=== PATIENT | female | born 1950 | race Caucasian/White ===

== ENCOUNTER 2017-04-26 12:04 | Inpatient (IN) | payer OTHER, BC ==
[2017-04-26] MEDS ORDERED: TUSSIONEX PENNKINETIC SUSP PO PRN (14:22)
[2017-04-26 15:04] LABS: BASOPHILS % (AUTO) 0.6 % (0.2-1.0); EOSINOPHILS % (AUTO) 0.9 % (0.9-2.9); HEMATOCRIT 39.9 % (36.0-47.0); LYMPHOCYTES # (AUTO) 0.5 X10^3/uL (1.3-2.9); LYMPHOCYTES % (AUTO) 11.9 % (21.0-51.0); MEAN CORPUSCULAR HEMOGLOBIN 33.3 pg (27.0-34.0); MEAN CORPUSCULAR HGB CONC 35.1 g/dL (33.0-35.0); MEAN CORPUSCULAR VOLUME 94.9 fL (80.0-100.0); MEAN PLATELET VOLUME 8.4 fL (7.4-11.0); MONOCYTES # (AUTO) 0.4 x10^3/uL (0.3-0.8); NEUTROPHILS % (AUTO) 75.6 % (42.0-75.0); PLATELET COUNT 57 X10^3/uL (150.0-450.0); RED BLOOD COUNT 4.21 X10^6/uL (3.5-5.4); RED CELL DISTRIBUTION WIDTH 14.2 % (11.6-16.5); WHITE BLOOD COUNT 3.9 X10^3/uL (3.6-10.0)
[2017-04-26 15:09] LABS: BLOOD UREA NITROGEN 18 mg/dL (7-18); CHLORIDE 106 mmol/L (98-107); eGFR BLACK RACES > 60 (>60); eGFR NON BLACK RACES > 60 (>60)
[2017-04-26 15:10] LABS: ALANINE AMINOTRANSFERASE 24 Units/L (12-78); ALBUMIN 3.3 g/dL (3.4-5.0); ALKALINE PHOSPHATASE 124 Units/L (46-116); ASPARTATE AMINO TRANSFERASE 51 Units/L (15-37); CALCIUM 9.4 mg/dL (8.5-10.1); CARBON DIOXIDE 27.9 mmol/L (21-32); COR NA(FOR HYPERGLY) 144 mmol/L (136-145); CREATININE 0.86 mg/dL (0.55-1.02); SODIUM 142 mmol/L (136-145); TOTAL PROTEIN 6.9 g/dL (6.4-8.2)
--- NOTE | 2017-04-26 15:18 | RAD ---
HISTORY: Shortness of breath Study: PA and lateral Comparison: None Findings: The heart is mildly enlarged. The pulmonary vessels are slightly engorged ill-defined centrally with hazy perihilar interstitial prominence . No effusion is seen. IMPRESSION: Mild cardiomegaly and mild central pulmonary congestion with no infiltrate or effusion. Reported By:
[2017-04-26] MEDS ORDERED: PREVNAR 13 IM ONE (15:23)
[2017-04-26 15:24] VITALS: BMI 50.1
[2017-04-26 15:25] LABS: BAND NEUTROPHILS % 8 % (0-10)
[2017-04-26 15:27] LABS: PLATELET MORPHOLOGY COMMENT ABNORMAL (NORMAL)
[2017-04-26] MEDS ORDERED: SALINE 3% 15 ML NEB TX NEB ONE (15:30)
[2017-04-26] MEDS ORDERED: NS 1/2 1000 ML IV 1,000 ML IV ONE (15:31)
[2017-04-26] MEDS ORDERED: SALINE 3% 15 ML NEB TX ONE (15:31)
[2017-04-26] MEDS: NS 1/2 1000 ML IV 1,000 ML IV SCH (15:45)
[2017-04-26] MEDS: LASIX IVP SCH (15:45)
[2017-04-26] MEDS: TAMIFLU PO SCH ×2 (15:45→21:07)
[2017-04-26] MEDS: ROBITUSSIN DM PO SCH ×3 (15:45→21:06)
[2017-04-26] MEDS: LEVAQUIN PREMIX IV 750 MG 750 MG/150 ML BAG IV SCH (16:23)
[2017-04-26] MEDS: DUONEB 0.5 MG/3 MG NEB SCH ×2 (16:28→20:35)
[2017-04-27] MEDS: DUONEB 0.5 MG/3 MG NEB SCH ×6 (00:30→21:30)
[2017-04-27] MEDS: NS 1/2 1000 ML IV 1,000 ML IV SCH ×2 (06:32→21:10)
[2017-04-27 06:36] LABS: BASOPHILS % (AUTO) 0.5 % (0.2-1.0); EOSINOPHILS # (AUTO) 0.1 x10^3/uL (0.0-0.2); EOSINOPHILS % (AUTO) 1.8 % (0.9-2.9); HEMOGLOBIN 13.2 g/dL (12.0-16.0); LYMPHOCYTES # (AUTO) 0.5 X10^3/uL (1.3-2.9); LYMPHOCYTES % (AUTO) 16.7 % (21.0-51.0); MEAN CORPUSCULAR HEMOGLOBIN 33.7 pg (27.0-34.0); MEAN CORPUSCULAR HGB CONC 35.6 g/dL (33.0-35.0); MEAN CORPUSCULAR VOLUME 94.8 fL (80.0-100.0); MEAN PLATELET VOLUME 8.8 fL (7.4-11.0); MONOCYTES # (AUTO) 0.3 x10^3/uL (0.3-0.8); MONOCYTES % (AUTO) 10.4 % (0.0-13.0); NEUTROPHILS # (AUTO) 2.2 x10^3/uL (2.2-4.8); NEUTROPHILS % (AUTO) 70.6 % (42.0-75.0); PLATELET COUNT 53 X10^3/uL (150.0-450.0); WHITE BLOOD COUNT 3.1 X10^3/uL (3.6-10.0)
--- NOTE | 2017-04-27 06:54 | RAD ---
HISTORY: Shortness of breath Study: Chest AP portable Comparison: 04/26/2017 Findings: The heart is enlarged. No congestive heart failure is noted. No acute alveolar infiltrates or pleural effusions are identified. The bony thorax is unremarkable. IMPRESSION: Moderate cardiomegaly without definite congestive heart failure Lungs clear Reported By:
[2017-04-27 07:16] LABS: ALANINE AMINOTRANSFERASE 23 Units/L (12-78); ALBUMIN 2.7 g/dL (3.4-5.0); ALKALINE PHOSPHATASE 102 Units/L (46-116); ASPARTATE AMINO TRANSFERASE 70 Units/L (15-37); BLOOD UREA NITROGEN 20 mg/dL (7-18); CALCIUM 8.7 mg/dL (8.5-10.1); CHLORIDE 106 mmol/L (98-107); COR CA(FOR HYPOALB) 9.7 mg/dL (8.5-10.1); COR NA(FOR HYPERGLY) 140 mmol/L (136-145); CREATININE 1.02 mg/dL (0.55-1.02); SODIUM 139 mmol/L (136-145); eGFR BLACK RACES > 60 (>60); eGFR NON BLACK RACES 58 (>60)
[2017-04-27] MEDS: TAMIFLU PO SCH ×2 (09:29→21:06)
[2017-04-27] MEDS: ROBITUSSIN DM PO SCH ×4 (09:29→21:05)
[2017-04-27] MEDS: LASIX IVP SCH (09:29)
[2017-04-27] MEDS: LEVAQUIN PREMIX IV 750 MG 750 MG/150 ML BAG IV SCH (09:29)
[2017-04-27] MEDS ORDERED: POTASSIUM CHLORIDE LIQ 20 MEQ UDC PO PRN (10:40)
[2017-04-27] MEDS ORDERED: POTASSIUM CHL 40 MEQ/NS 0.45% 500 ML IV PRN (10:40)
[2017-04-27] MEDS ORDERED: POTASSIUM CHL 60 MEQ/NS 0.45% 500 ML IV PRN (10:40)
[2017-04-27] MEDS ORDERED: MAGNESIUM SULFATE 1 GM/100 mL PREMIX 1 GM/100 ML BAG IV PRN (10:40)
[2017-04-27] MEDS ORDERED: K-RIDER 10 MEQ/NS 100 ML 10 MEQ/100 ML BAG IV PRN (10:40)
[2017-04-27] MEDS ORDERED: K-LYTE EFFERVESCENT PO PRN (10:40)
--- NOTE | 2017-04-27 11:14 | DR.UPDATE ---
H&P Update History and Physical Update: WAS SEEN IN THE OFFICE ON 04/26/17. A H&P WAS COMPLETED PRIOR TO ADMISSION. PATIENT HAS BEEN SEEN AND EXAMINED WITH THE FOLLOWING IN CHANGES NOTED TO H&P: Changes noted: YES Yes with the following:PATIENT PRESENTED TO THE OFFICE WITH COUGH, WEAKNESS, AND GENERALIZED WEAKNESS THAT BEGAN ON TUESDAY. SHE ALSO REPORTS DIARRHEA SINCE TUESDAY. SHE WAS ADMITTED TO THE HOSPITAL ON THE PNEUMONIA PROTOCOL. SHE WAS STARTED ON NORMAL SALINE AT 30ML/HR, LEVAQUIN 750MG IV DAILY, AND RESPIRATORY TREATMENTS. LABS AND CHEST XRAY WILL BE OBTAINED ON ADMISSION.
[2017-04-27] MEDS ORDERED: CELEXA PO SCH (12:00)
[2017-04-27] MEDS ORDERED: NADOLOL PO SCH (12:00)
[2017-04-27] MEDS ORDERED: ZANAFLEX PO SCH (12:00)
[2017-04-27] MEDS ORDERED: [UNRECOGNIZED DRUG - OTHER] PO SCH (12:00)
[2017-04-27] MEDS ORDERED: HCTHIAZID PO SCH (12:00)
[2017-04-27] MEDS ORDERED: CLARITIN PO SCH (12:00)
[2017-04-27] MEDS ORDERED: AMLODIPIN PO SCH (12:00)
[2017-04-27] MEDS ORDERED: OLMESARTAN PO SCH (12:00)
[2017-04-27] MEDS ORDERED: PATIENT'S HOME MEDICATION (Metformin Hcl [Metformin Hcl] 1 TAB) PO SCH (12:00)
[2017-04-27] MEDS: HumuLIN R SUBCUT PRN (13:09)
[2017-04-27] MEDS: MOBIC TAB 15 MG PO SCH (13:11)
[2017-04-27] MEDS: K-DUR TAB 20 MEQ PO SCH (13:12)
[2017-04-27] MEDS: ZANTAC PO SCH ×2 (13:12→21:06)
[2017-04-27] MEDS: MAG-OX TAB PO PRN ×2 (13:12→17:05)
[2017-04-27] MEDS: AMARYL TAB 4 MG PO SCH ×2 (13:13→21:05)
[2017-04-27] MEDS: SYNTHROID 100 mcg TAB PO SCH (14:58)
[2017-04-27] MEDS: FLONASE NASAL SPRAY ENOSTRIL SCH (14:59)
[2017-04-27] MEDS ORDERED: GLUCOPHAGE ONE (17:02)
[2017-04-27] MEDS: GLUCOPHAGE PO SCH (17:06)
[2017-04-27] MEDS ORDERED: NS 1/2 1000 ML IV 1,000 ML IV ONE (20:38)
[2017-04-27] MEDS: CELEXA PO SCH (21:05)
[2017-04-27] MEDS: ZANAFLEX PO SCH (21:06)
[2017-04-27] MEDS: NADOLOL PO SCH (21:10)
[2017-04-27] MEDS: SNACK - Diabetic Appropriate PO SCH (21:11)
[2017-04-28] MEDS ORDERED: DUONEB 0.5 MG/3 MG ONE (00:04)
[2017-04-28] MEDS: DUONEB 0.5 MG/3 MG NEB SCH ×6 (00:05→21:30)
[2017-04-28 06:14] LABS: BASOPHILS % (AUTO) 0.4 % (0.2-1.0); EOSINOPHILS # (AUTO) 0.1 x10^3/uL (0.0-0.2); EOSINOPHILS % (AUTO) 3.1 % (0.9-2.9); HEMATOCRIT 35.2 % (36.0-47.0); HEMOGLOBIN 12.7 g/dL (12.0-16.0); LYMPHOCYTES # (AUTO) 0.6 X10^3/uL (1.3-2.9); LYMPHOCYTES % (AUTO) 23.2 % (21.0-51.0); MEAN CORPUSCULAR HEMOGLOBIN 33.7 pg (27.0-34.0); MEAN CORPUSCULAR HGB CONC 36.2 g/dL (33.0-35.0); MEAN CORPUSCULAR VOLUME 93.3 fL (80.0-100.0); MEAN PLATELET VOLUME 9.1 fL (7.4-11.0); MONOCYTES # (AUTO) 0.2 x10^3/uL (0.3-0.8); MONOCYTES % (AUTO) 8.9 % (0.0-13.0); NEUTROPHILS # (AUTO) 1.7 x10^3/uL (2.2-4.8); NEUTROPHILS % (AUTO) 64.4 % (42.0-75.0); PLATELET COUNT 51 X10^3/uL (150.0-450.0); RED BLOOD COUNT 3.77 X10^6/uL (3.5-5.4); RED CELL DISTRIBUTION WIDTH 14.1 % (11.6-16.5); WHITE BLOOD COUNT 2.6 X10^3/uL (3.6-10.0)
[2017-04-28 06:17] LABS: ALANINE AMINOTRANSFERASE 22 Units/L (12-78); ALBUMIN 2.5 g/dL (3.4-5.0); ALKALINE PHOSPHATASE 125 Units/L (46-116); ASPARTATE AMINO TRANSFERASE 67 Units/L (15-37); BLOOD UREA NITROGEN 19 mg/dL (7-18); CALCIUM 8.3 mg/dL (8.5-10.1); CARBON DIOXIDE 23.9 mmol/L (21-32); CHLORIDE 105 mmol/L (98-107); COR CA(FOR HYPOALB) 9.5 mg/dL (8.5-10.1); COR NA(FOR HYPERGLY) 140 mmol/L (136-145); CREATININE 1.11 mg/dL (0.55-1.02); MAGNESIUM 1.4 mg/dL (1.7-2.9); SODIUM 137 mmol/L (136-145); TOTAL PROTEIN 5.5 g/dL (6.4-8.2); eGFR BLACK RACES > 60 (>60); eGFR NON BLACK RACES 52 (>60)
[2017-04-28] MEDS ORDERED: GLUCOPHAGE ONE ×2 (06:30→16:56)
[2017-04-28] MEDS: GLUCOPHAGE PO SCH ×2 (06:32→16:58)
[2017-04-28] MEDS: AMARYL TAB 4 MG PO SCH ×2 (09:18→21:21)
[2017-04-28] MEDS: BENICAR TAB 40 MG PO SCH (09:18)
[2017-04-28] MEDS: FLONASE NASAL SPRAY ENOSTRIL SCH (09:18)
[2017-04-28] MEDS: HYDROCHLOROTHIAZIDE 12.5 MG CAP PO SCH (09:18)
[2017-04-28] MEDS: K-DUR TAB 20 MEQ PO SCH (09:19)
[2017-04-28] MEDS: LEVAQUIN PREMIX IV 750 MG 750 MG/150 ML BAG IV SCH (09:20)
[2017-04-28] MEDS: LASIX IVP SCH (09:20)
[2017-04-28] MEDS: ROBITUSSIN DM PO SCH ×4 (09:21→21:27)
[2017-04-28] MEDS: ZANTAC PO SCH ×2 (09:21→21:20)
[2017-04-28] MEDS: NORVASC TAB 5 MG PO SCH (09:21)
[2017-04-28] MEDS: MOBIC TAB 15 MG PO SCH (09:21)
[2017-04-28] MEDS: TAMIFLU PO SCH ×2 (09:22→21:20)
[2017-04-28] MEDS: SYNTHROID 100 mcg TAB PO SCH (09:22)
[2017-04-28] MEDS: MAG-OX TAB PO PRN ×2 (09:22→13:55)
[2017-04-28] MEDS: HumuLIN R SUBCUT PRN (11:18)
[2017-04-28] MEDS ORDERED: NS 1/2 1000 ML IV 1,000 ML IV ONE (16:56)
[2017-04-28] MEDS: NS 1/2 1000 ML IV 1,000 ML IV SCH ×2 (16:57→21:52)
--- NOTE | 2017-04-28 19:20 | PCM.PROG ---
Progress Note - Progress Note for Day of Date: 04/27/17 - Subjective Subjective: WAS ADMITTED ON 04/26/2017. HE IS BEING TREATED FOR BRONCHOPNEUMONIA AND INFLUENZA. TODAY, HE IS ALERT AND ORIENTED, LYING IN BED ON MORNING ROUNDS. TODAY, SHE IS NOTED WITH COMPLAINTS OF SHORNTESS OF BREATH AND PRODUCTIVE COUGH. ON EXAMINATION, HEART IS REGULAR IN RATE AND RHYTHM. BIALTERAL LUNGS ARE NOTED WITH EXPIRATORY WHEEZING AND RHONCHI THROUGHOUT. SHE IS CURRENTLY UTILIZING OXYGEN AT 2L/MIN. ABDOMEN IS ROUND, SOFT, AND NON-TENDER WITH NORMAL BOWEL SOUNDS NOTED IN ALL QUADRANTS. THERE IS NORMAL RANGE OF MOTION NOTED TO ALL EXTREMITIES. HER VITALS THIS MORNING ARE 98.0-65-18-94%-122/ 58. SHE DID RUN A TEMPERATURE OF 100.8 AT MIDNIGHT. LABS WERE OBTAINED. ABNORMAL LAB VALUES INCLUDE THE FOLLOWING: WBC 3.1, PLT COUNT 53, BUN 20, GLUCOSE 161, MAGNESIUM 1.3, TOTAL BILI 1.20, AST 70, TOTAL PROTEIN 6.0, ALBUMIN 2.7. BLOOD AND SPUTUM CULTURES ARE PENDING. CHEST XRAY REPORTS MODERATE CARDIOMEGALY WITHOUT DEFINITE CONGESTIVE HEART FAILURE. SHE CONTINUES ON IV ANTIBIOTICS AND RESPIRATORY TREATMENTS. WE WILL CONTINUE WITH CURRENT PLAN OF CARE TODAY. WE PLAN TO FOLLOW UP WITH AM LABS AND CONTINUE TO MONITOR PATIENT. - Past Medical Family Social History Past Med/Fam/Surg Hx: No changes since H&P Allergies: Allergies azithromycin [From Zithromax Z-Kevin] Allergy (Verified 04/26/17 12:22) clarithromycin [From Biaxin] Allergy (Verified 04/26/17 12:22) fluconazole [From Diflucan] Allergy (Verified 04/26/17 12:22) NSAIDS (Non-Steroidal Anti-Inflamma Allergy (Verified 04/26/17 12:22) - Review of Systems ROS: No change since H&P - Vital Signs and I&O's Vital Signs: Temperature 98.2 F Pulse Rate [Left Radial] 73 Pulse Rate 70 Respiratory Rate 20 Blood Pressure [Left Arm] 136/62 O2 Sat by Pulse Oximetry 93 Intake and Output: Intake & Output 04/26/17 04/27/17 04/28/17 04/29/17 11:59 11:59 11:59 11:59 Intake Total 1080 2513 1341 Output Total 1900 1500 Balance 1080 613 -159 - Physical Exam Oriented: Normal Eyes: Normal. negative: Blurred Vision, Diplopia, Discharge, Pain, Redness, Photophobia, Other Ear: Normal. negative: Right, Left, Swelling, Ecchymosis, Hemotypanum, Abrasion , Laceration Nose: Normal Throat: Normal Respiratory: Right, Left, Generalized, Wheezes, Rhonchi Cardiovascular: Normal : Normal. negative: Dysuria, Hematuria, Frequency, Discharge, Testicular Pain , Bleeding, , Other Auscultation: Bowel Sounds: Normal. negative: Bruit, Absent, Increased, Decreased, High Pitched, Other Palpation: Normal Tenderness: Normal. negative: Rebound, Guarding, Rigidity Skin: Normal Musculoskeletal: Normal Psychiatric: Normal Mood Description: Calm Affect: Normal Speech Pattern: Clear, Appropriate - Laboratory and Diagnostics Result Diagrams: 04/28/17 05:15 04/28/17 05:15 Labs: 04/26/17 14:45 Blood Blood Culture - Preliminary 04/26/17 14:40 Blood Blood Culture - Preliminary 04/26/17 16:31 Sputum - Expectorated Sputum Sputum Culture - Preliminary 04/26/17 16:31 Sputum - Expectorated Sputum - Final Laboratory WBC 2.6 X10^3/uL (3.6-10.0) L 04/28/17 05:15 RBC 3.77 X10^6/uL (3.5-5.4) 04/28/17 05:15 Hgb 12.7 g/dL (12.0-16.0) 04/28/17 05:15 Hct 35.2 % (36.0-47.0) L 04/28/17 05:15 MCV 93.3 fL (80.0-100.0) 04/28/17 05:15 MCH 33.7 pg (27.0-34.0) 04/28/17 05:15 MCHC 36.2 g/dL (33.0-35.0) H 04/28/17 05:15 RDW 14.1 % (11.6-16.5) 04/28/17 05:15 Plt Count 51 X10^3/uL (150.0-450.0) L 04/28/17 05:15 Plt Count Comment Decreased (ADEQUATE) A 04/26/17 14:40 MPV 9.1 fL (7.4-11.0) 04/28/17 05:15 Neut % 64.4 % (42.0-75.0) 04/28/17 05:15 Lymph % 23.2 % (21.0-51.0) 04/28/17 05:15 [place] % 8.9 % (0.0-13.0) 04/28/17 05:15 Eos % 3.1 % (0.9-2.9) H 04/28/17 05:15 Baso % 0.4 % (0.2-1.0) 04/28/17 05:15 Neut # 1.7 x10^3/uL (2.2-4.8) L 04/28/17 05:15 Lymph # 0.6 X10^3/uL (1.3-2.9) L 04/28/17 05:15 [place] # 0.2 x10^3/uL (0.3-0.8) L 04/28/17 05:15 Eos # 0.1 x10^3/uL (0.0-0.2) 04/28/17 05:15 Baso # 0.0 X10^3/uL (0.0-0.1) 04/28/17 05:15 Absolute Nucleated RBC 0.4 /100WBC 04/28/17 05:15 Total Counted 100 04/26/17 14:40 Neutrophils % (Manual) 65 % (39-76) 04/26/17 14:40 Band Neutrophils % 8 % (0-10) 04/26/17 14:40 Lymphocytes % (Manual) 8 % (13-43) L 04/26/17 14:40 Monocytes % (Manual) 15 % (4-9) H 04/26/17 14:40 Eosinophils % (Manual) 3 % (0-6) 04/26/17 14:40 Atypical Lymphocytes 1 04/26/17 14:40 Plt Morphology Comment Abnormal (NORMAL) A 04/26/17 14:40 RBC Morphology Normal (NORMAL) 04/26/17 14:40 Sodium 137 mmol/L (136-145) 04/28/17 05:15 Corrected Sodium 140 mmol/L (136-145) 04/28/17 05:15 Potassium 3.7 mmol/L (3.5-5.1) 04/28/17 05:15 Chloride 105 mmol/L (98-107) 04/28/17 05:15 Carbon Dioxide 23.9 mmol/L (21-32) 04/28/17 05:15 BUN 19 mg/dL (7-18) H 04/28/17 05:15 Creatinine 1.11 mg/dL (0.55-1.02) H 04/28/17 05:15 Est GFR (MDRD) Af Amer > 60 (>60) 04/28/17 05:15 Est GFR (MDRD) Non-Af 52 (>60) L 04/28/17 05:15 Glucose 223 mg/dL (65-99) H 04/28/17 05:15 POC Glucose (mg/dL) 183 mg/dL (65-99) H 04/28/17 17:03 Calcium 8.3 mg/dL (8.5-10.1) L 04/28/17 05:15 Corrected Calcium 9.5 mg/dL (8.5-10.1) 04/28/17 05:15 Magnesium 1.4 mg/dL (1.7-2.9) L 04/28/17 05:15 Total Bilirubin 1.20 mg/dL (0.2-1.0) H 04/28/17 05:15 AST 67 Units/L (15-37) H 04/28/17 05:15 ALT 22 Units/L (12-78) 04/28/17 05:15 Alkaline Phosphatase 125 Units/L (46-116) H 04/28/17 05:15 Total Protein 5.5 g/dL (6.4-8.2) L 04/28/17 05:15 Albumin 2.5 g/dL (3.4-5.0) L 04/28/17 05:15 Globulin 3.0 g/dL (2.5-4.5) 04/28/17 05:15 Albumin/Globulin Ratio 0.8 Ratio (1.1-2.1) L 04/28/17 05:15 Influenza Type A (PCR) Positive (NEGATIVE) A 04/26/17 15:12 Influenza Type B (PCR) Negative (NEGATIVE) 04/26/17 15:12 - Plan (1) Bronchopneumonia Status: Acute Plan: PNEUMONIA PROTOCOL, LEVAQUIN 750MG IV DAILY, RESPIRATORY TX, SUPPLEMENTAL OXYGEN, CONTINUE TO MONITOR (2) Influenza A Status: Acute Plan: TAMIFLU 75MG PO BID, DROPLET PRECAUTIONS, CONTINUE TO MONITOR
[2017-04-28] MEDS: ZANAFLEX PO SCH (21:20)
[2017-04-28] MEDS: CELEXA PO SCH (21:21)
[2017-04-28] MEDS: SNACK - Diabetic Appropriate PO SCH (21:21)
[2017-04-28] MEDS: NADOLOL PO SCH (21:25)
[2017-04-29] MEDS: DUONEB 0.5 MG/3 MG NEB SCH ×6 (01:36→21:46)
[2017-04-29 04:26] LABS: BASOPHILS % (AUTO) 0.4 % (0.2-1.0); EOSINOPHILS # (AUTO) 0.1 x10^3/uL (0.0-0.2); EOSINOPHILS % (AUTO) 2.4 % (0.9-2.9); HEMATOCRIT 35.5 % (36.0-47.0); HEMOGLOBIN 12.6 g/dL (12.0-16.0); LYMPHOCYTES # (AUTO) 0.7 X10^3/uL (1.3-2.9); MEAN CORPUSCULAR HEMOGLOBIN 33.5 pg (27.0-34.0); MEAN CORPUSCULAR HGB CONC 35.5 g/dL (33.0-35.0); MEAN CORPUSCULAR VOLUME 94.3 fL (80.0-100.0); MEAN PLATELET VOLUME 8.4 fL (7.4-11.0); MONOCYTES # (AUTO) 0.3 x10^3/uL (0.3-0.8); NEUTROPHILS # (AUTO) 1.5 x10^3/uL (2.2-4.8); NEUTROPHILS % (AUTO) 58.2 % (42.0-75.0); PLATELET COUNT 52 X10^3/uL (150.0-450.0); RED BLOOD COUNT 3.76 X10^6/uL (3.5-5.4); RED CELL DISTRIBUTION WIDTH 13.8 % (11.6-16.5); WHITE BLOOD COUNT 2.5 X10^3/uL (3.6-10.0)
[2017-04-29 04:32] LABS: ALANINE AMINOTRANSFERASE 23 Units/L (12-78); ALBUMIN 2.5 g/dL (3.4-5.0); ALKALINE PHOSPHATASE 100 Units/L (46-116); ASPARTATE AMINO TRANSFERASE 59 Units/L (15-37); BLOOD UREA NITROGEN 21 mg/dL (7-18); CALCIUM 8.5 mg/dL (8.5-10.1); CARBON DIOXIDE 26.3 mmol/L (21-32); CHLORIDE 105 mmol/L (98-107); COR CA(FOR HYPOALB) 9.7 mg/dL (8.5-10.1); COR NA(FOR HYPERGLY) 140 mmol/L (136-145); CREATININE 1.07 mg/dL (0.55-1.02); SODIUM 138 mmol/L (136-145); TOTAL PROTEIN 5.4 g/dL (6.4-8.2); eGFR BLACK RACES > 60 (>60); eGFR NON BLACK RACES 55 (>60)
[2017-04-29] MEDS ORDERED: GLUCOPHAGE ONE ×2 (06:17→17:17)
[2017-04-29] MEDS: GLUCOPHAGE PO SCH ×2 (07:00→17:00)
--- NOTE | 2017-04-29 07:38 | RAD ---
HISTORY: Pneumonia, shortness of breath Study: Chest AP portable Comparison: 04/27/2017 Findings: The heart remains enlarged. No congestive heart failure is noted. No definite acute alveolar infiltra daniel or pleural effusions are identified. The bony thorax is unremarkable. IMPRESSION: Moderate cardiomegaly without congestive heart failure No definite acute alveolar infiltrates Reported By:
[2017-04-29] MEDS: ROBITUSSIN DM PO SCH ×4 (09:56→22:15)
[2017-04-29] MEDS: SYNTHROID 100 mcg TAB PO SCH (09:56)
[2017-04-29] MEDS: LEVAQUIN PREMIX IV 750 MG 750 MG/150 ML BAG IV SCH (09:56)
[2017-04-29] MEDS: BENICAR TAB 40 MG PO SCH (09:57)
[2017-04-29] MEDS: HYDROCHLOROTHIAZIDE 12.5 MG CAP PO SCH (09:57)
[2017-04-29] MEDS: AMARYL TAB 4 MG PO SCH ×2 (09:57→22:17)
[2017-04-29] MEDS: NORVASC TAB 5 MG PO SCH (09:57)
[2017-04-29] MEDS: MOBIC TAB 15 MG PO SCH (09:57)
[2017-04-29] MEDS: K-DUR TAB 20 MEQ PO SCH (09:57)
[2017-04-29] MEDS: LASIX IVP SCH (09:57)
[2017-04-29] MEDS: TAMIFLU PO SCH ×2 (09:57→22:17)
[2017-04-29] MEDS: ZANTAC PO SCH ×2 (09:58→22:18)
[2017-04-29] MEDS: FLONASE NASAL SPRAY ENOSTRIL SCH (09:58)
[2017-04-29] MEDS: HumuLIN R SUBCUT PRN (11:58)
[2017-04-29 20:43] LABS: STOOL FOR WBC NEGATIVE (NEGATIVE)
[2017-04-29 20:44] LABS: CRYPTOSPORIDIUM PARVUM ANTIGEN NEGATIVE (NEGATIVE); GIARDIA LAMBLIA ANTIGEN NEGATIVE (NEGATIVE)
--- NOTE | 2017-04-29 21:25 | PCM.PROG ---
Progress Note - Progress Note for Day of Date: 04/28/17 - Subjective Subjective: WAS ADMITTED FOR BRONCHOPNEUMONIA AND INFLUENZA. TODAY, HE IS ALERT AND ORIENTED, LYING IN BED ON MORNING ROUNDS. TODAY, SHE IS NOTED WITH COMPLAINTS OF SHORNTESS OF BREATH AND PRODUCTIVE COUGH. ON EXAMINATION, HEART IS REGULAR IN RATE AND RHYTHM. BIALTERAL LUNGS CONTINUE WITH EXPIRATORY WHEEZING AND RHONCHI THROUGHOUT. SHE IS CURRENTLY UTILIZING OXYGEN AT 2L/MIN. ABDOMEN IS ROUND, SOFT, AND NON-TENDER WITH NORMAL BOWEL SOUNDS NOTED IN ALL QUADRANTS. THERE IS NORMAL RANGE OF MOTION NOTED TO ALL EXTREMITIES. HER VITALS THIS MORNING ARE 98.1-67-18-94%-123/58. SHE WAS AFEBRILE THROUGHOUT THE NIGHT. LABS WERE OBTAINED. ABNORMAL LAB VALUES INCLUDE THE FOLLOWING: WBC 2.6, HCT 35.2 , PLT COUNT 51, BUN 19, CREATININE 1.11, GLUCOSE 223, CALCIUM 8.3, MAGNESIUM 1.4 , TOTAL BILI 1.20, AST 67, ALK PHOS 125, TOTAL PROTEIN 5.5, ALBUMIN 2.5. BLOOD AND SPUTUM CULTURES ARE PENDING. SHE CONTINUES ON IV ANTIBIOTICS AND RESPIRATORY TREATMENTS. WE WILL CONTINUE WITH CURRENT PLAN OF CARE TODAY. WE PLAN TO FOLLOW UP WITH AM LABS AND CONTINUE TO MONITOR PATIENT. - Past Medical Family Social History Past Med/Fam/Surg Hx: No changes since H&P Allergies: Allergies azithromycin [From Zithromax Z-Kevin] Allergy (Verified 04/26/17 12:22) clarithromycin [From Biaxin] Allergy (Verified 04/26/17 12:22) fluconazole [From Diflucan] Allergy (Verified 04/26/17 12:22) NSAIDS (Non-Steroidal Anti-Inflamma Allergy (Verified 04/26/17 12:22) - Review of Systems ROS: No change since H&P - Vital Signs and I&O's Vital Signs: Temperature 99.1 F Pulse Rate [Left Radial] 66 Pulse Rate 77 Respiratory Rate 18 Blood Pressure [Left Arm] 134/53 O2 Sat by Pulse Oximetry 97 Intake and Output: Intake & Output 04/27/17 04/28/17 04/29/17 04/30/17 11:59 11:59 11:59 11:59 Intake Total 1080 2513 2048 1361 Output Total 1900 2000 Balance 1080 607 97 3805 - Physical Exam Oriented: Normal Eyes: Normal. negative: Blurred Vision, Diplopia, Discharge, Pain, Redness, Photophobia, Other Ear: Normal. negative: Right, Left, Swelling, Ecchymosis, Hemotypanum, Abrasion , Laceration Nose: Normal Throat: Normal Respiratory: Right, Left, Generalized, Wheezes, Rhonchi Cardiovascular: Normal : Normal. negative: Dysuria, Hematuria, Frequency, Discharge, Testicular Pain , Bleeding, , Other Auscultation: Bowel Sounds: Normal. negative: Bruit, Absent, Increased, Decreased, High Pitched, Other Palpation: Normal Tenderness: Normal. negative: Rebound, Guarding, Rigidity Skin: Normal Musculoskeletal: Normal Psychiatric: Normal Mood Description: Calm Affect: Normal Speech Pattern: Clear, Appropriate - Laboratory and Diagnostics Result Diagrams: 04/29/17 03:50 04/29/17 03:50 Labs: 04/29/17 20:13 Stool - Final 04/26/17 16:31 Sputum - Expectorated Sputum Sputum Culture - Preliminary 04/26/17 16:31 Sputum - Expectorated Sputum - Final 04/26/17 14:45 Blood Blood Culture - Preliminary 04/26/17 14:40 Blood Blood Culture - Preliminary Laboratory WBC 2.5 X10^3/uL (3.6-10.0) L 04/29/17 03:50 RBC 3.76 X10^6/uL (3.5-5.4) 04/29/17 03:50 Hgb 12.6 g/dL (12.0-16.0) 04/29/17 03:50 Hct 35.5 % (36.0-47.0) L 04/29/17 03:50 MCV 94.3 fL (80.0-100.0) 04/29/17 03:50 MCH 33.5 pg (27.0-34.0) 04/29/17 03:50 MCHC 35.5 g/dL (33.0-35.0) H 04/29/17 03:50 RDW 13.8 % (11.6-16.5) 04/29/17 03:50 Plt Count 52 X10^3/uL (150.0-450.0) L 04/29/17 03:50 Plt Count Comment Decreased (ADEQUATE) A 04/26/17 14:40 MPV 8.4 fL (7.4-11.0) 04/29/17 03:50 Neut % 58.2 % (42.0-75.0) 04/29/17 03:50 Lymph % 28.0 % (21.0-51.0) 04/29/17 03:50 [place] % 11.0 % (0.0-13.0) 04/29/17 03:50 Eos % 2.4 % (0.9-2.9) 04/29/17 03:50 Baso % 0.4 % (0.2-1.0) 04/29/17 03:50 Neut # 1.5 x10^3/uL (2.2-4.8) L 04/29/17 03:50 Lymph # 0.7 X10^3/uL (1.3-2.9) L 04/29/17 03:50 [place] # 0.3 x10^3/uL (0.3-0.8) 04/29/17 03:50 Eos # 0.1 x10^3/uL (0.0-0.2) 04/29/17 03:50 Baso # 0.0 X10^3/uL (0.0-0.1) 04/29/17 03:50 Absolute Nucleated RBC 0.3 /100WBC 04/29/17 03:50 Total Counted 100 04/26/17 14:40 Neutrophils % (Manual) 65 % (39-76) 04/26/17 14:40 Band Neutrophils % 8 % (0-10) 04/26/17 14:40 Lymphocytes % (Manual) 8 % (13-43) L 04/26/17 14:40 Monocytes % (Manual) 15 % (4-9) H 04/26/17 14:40 Eosinophils % (Manual) 3 % (0-6) 04/26/17 14:40 Atypical Lymphocytes 1 04/26/17 14:40 Plt Morphology Comment Abnormal (NORMAL) A 04/26/17 14:40 RBC Morphology Normal (NORMAL) 04/26/17 14:40 Sodium 138 mmol/L (136-145) 04/29/17 03:50 Corrected Sodium 140 mmol/L (136-145) 04/29/17 03:50 Potassium 3.7 mmol/L (3.5-5.1) 04/29/17 03:50 Chloride 105 mmol/L (98-107) 04/29/17 03:50 Carbon Dioxide 26.3 mmol/L (21-32) 04/29/17 03:50 BUN 21 mg/dL (7-18) H 04/29/17 03:50 Creatinine 1.07 mg/dL (0.55-1.02) H 04/29/17 03:50 Est GFR (MDRD) Af Amer > 60 (>60) 04/29/17 03:50 Est GFR (MDRD) Non-Af 55 (>60) L 04/29/17 03:50 Glucose 183 mg/dL (65-99) H 04/29/17 03:50 POC Glucose (mg/dL) 236 mg/dL (65-99) H 04/29/17 20:49 Calcium 8.5 mg/dL (8.5-10.1) 04/29/17 03:50 Corrected Calcium 9.7 mg/dL (8.5-10.1) 04/29/17 03:50 Magnesium 1.4 mg/dL (1.7-2.9) L 04/28/17 05:15 Total Bilirubin 1.40 mg/dL (0.2-1.0) H 04/29/17 03:50 AST 59 Units/L (15-37) H 04/29/17 03:50 ALT 23 Units/L (12-78) 04/29/17 03:50 Alkaline Phosphatase 100 Units/L (46-116) 04/29/17 03:50 Total Protein 5.4 g/dL (6.4-8.2) L 04/29/17 03:50 Albumin 2.5 g/dL (3.4-5.0) L 04/29/17 03:50 Globulin 2.9 g/dL (2.5-4.5) 04/29/17 03:50 Albumin/Globulin Ratio 0.9 Ratio (1.1-2.1) L 04/29/17 03:50 Stool Description 5g,brown,soft 04/29/17 20:13 Stl Occult Blood (IFOB) Negative (NEGATIVE) 04/29/17 20:13 Stool for White Cells Negative (NEGATIVE) 04/29/17 20:13 Cryptosporid parvum Ag Negative (NEGATIVE) 04/29/17 20:13 E. histolytica Antigen Negative (NEGATIVE) 04/29/17 20:13 Giardia lamblia Ag Negative (NEGATIVE) 04/29/17 20:13 Influenza Type A (PCR) Positive (NEGATIVE) A 04/26/17 15:12 Influenza Type B (PCR) Negative (NEGATIVE) 04/26/17 15:12 - Plan (1) Bronchopneumonia Status: Acute Plan: PNEUMONIA PROTOCOL, LEVAQUIN 750MG IV DAILY, RESPIRATORY TX, SUPPLEMENTAL OXYGEN, CONTINUE TO MONITOR (2) Influenza A Status: Acute Plan: TAMIFLU 75MG PO BID, DROPLET PRECAUTIONS, CONTINUE TO MONITOR (3) Hypertension Status: Chronic Qualifiers: Hypertension type: essential hypertension Qualified Code(s): I10 - Essential (primary) hypertension Plan: CONTINUE NORVASC, CONTINUE HCTZ, CONTINUE BENICAR, CONTINUE TO MONITOR (4) Depression Status: Chronic Qualifiers: Depression Type: major depressive disorder Major depression recurrence: recurrent Active/Remission status: remission status unspecified Qualified Code(s): F33.9 - Major depressive disorder, recurrent, unspecified Plan: CONTINUE CELEXA, CONTINUE TO MONITOR (5) Maxillary sinusitis, chronic Status: Chronic Plan: CONTINUE FLONASE, CONTINUE TO MONITOR (6) Diabetes Status: Chronic Qualifiers: Diabetes mellitus type: type 2 Diabetes mellitus complication status: with unspecified complications Diabetes mellitus care home insulin use: with long term care administrator use Qualified Code(s): E11.8 - Type 2 diabetes mellitus with unspecified complications; Z79.4 - medical terminologist (current) use of insulin; Z79.4 - senior living ( current) use of insulin; Z79.4 - medical terminologist (current) use of insulin; Z79.4 - medical terminologist (current) use of insulin Plan: CONTINUE AMARYL, CONTINUE HUMULIN R SLIDING SCALE, CONTINUE GLUCOPHAGE, MONITOR OTBS (7) GERD (gastroesophageal reflux disease) Status: Chronic Qualifiers: Esophagitis presence: esophagitis presence not specified Qualified Code(s) : K21.9 - Gastro-esophageal reflux disease without esophagitis Plan: CONTINUE ZANTAC, CONTINUE TO MONITOR
[2017-04-29] MEDS: ZANAFLEX PO SCH (22:16)
[2017-04-29] MEDS: CELEXA PO SCH (22:16)
[2017-04-29] MEDS: NADOLOL PO SCH (22:19)
[2017-04-29] MEDS: SNACK - Diabetic Appropriate PO SCH (22:20)
[2017-04-30] MEDS: DUONEB 0.5 MG/3 MG NEB SCH ×3 (01:24→08:40)
[2017-04-30] MEDS ORDERED: NS 1/2 1000 ML IV 1,000 ML IV ONE (06:08)
[2017-04-30] MEDS ORDERED: GLUCOPHAGE ONE (06:17)
[2017-04-30] MEDS: NS 1/2 1000 ML IV 1,000 ML IV SCH (06:20)
[2017-04-30] MEDS: GLUCOPHAGE PO SCH (06:21)
[2017-04-30 06:37] LABS: BASOPHILS % (AUTO) 0.4 % (0.2-1.0); EOSINOPHILS # (AUTO) 0.1 x10^3/uL (0.0-0.2); EOSINOPHILS % (AUTO) 3.3 % (0.9-2.9); HEMATOCRIT 37.4 % (36.0-47.0); HEMOGLOBIN 13.4 g/dL (12.0-16.0); LYMPHOCYTES % (AUTO) 25.1 % (21.0-51.0); MEAN CORPUSCULAR HEMOGLOBIN 33.3 pg (27.0-34.0); MEAN CORPUSCULAR HGB CONC 35.7 g/dL (33.0-35.0); MEAN CORPUSCULAR VOLUME 93.2 fL (80.0-100.0); MEAN PLATELET VOLUME 8.7 fL (7.4-11.0); MONOCYTES # (AUTO) 0.3 x10^3/uL (0.3-0.8); MONOCYTES % (AUTO) 8.4 % (0.0-13.0); NEUTROPHILS # (AUTO) 2.5 x10^3/uL (2.2-4.8); NEUTROPHILS % (AUTO) 62.8 % (42.0-75.0); PLATELET COUNT 69 X10^3/uL (150.0-450.0); RED BLOOD COUNT 4.01 X10^6/uL (3.5-5.4); RED CELL DISTRIBUTION WIDTH 13.9 % (11.6-16.5); WHITE BLOOD COUNT 3.9 X10^3/uL (3.6-10.0)
[2017-04-30 06:39] LABS: ALANINE AMINOTRANSFERASE 29 Units/L (12-78); ALBUMIN 2.7 g/dL (3.4-5.0); ALKALINE PHOSPHATASE 159 Units/L (46-116); ASPARTATE AMINO TRANSFERASE 59 Units/L (15-37); BLOOD UREA NITROGEN 19 mg/dL (7-18); CALCIUM 8.9 mg/dL (8.5-10.1); CARBON DIOXIDE 27.8 mmol/L (21-32); CHLORIDE 104 mmol/L (98-107); COR CA(FOR HYPOALB) 9.9 mg/dL (8.5-10.1); COR NA(FOR HYPERGLY) 142 mmol/L (136-145); CREATININE 0.97 mg/dL (0.55-1.02); SODIUM 139 mmol/L (136-145); eGFR BLACK RACES > 60 (>60); eGFR NON BLACK RACES > 60 (>60)
[2017-04-30] MEDS ORDERED: K-LYTE EFFERVESCENT ONE (07:19)
[2017-04-30] MEDS: ROBITUSSIN DM PO SCH (08:37)
[2017-04-30] MEDS: LEVAQUIN PREMIX IV 750 MG 750 MG/150 ML BAG IV SCH (08:37)
[2017-04-30] MEDS: LASIX IVP SCH (08:37)
[2017-04-30] MEDS: MOBIC TAB 15 MG PO SCH (08:37)
[2017-04-30] MEDS: TAMIFLU PO SCH (08:38)
[2017-04-30] MEDS: K-DUR TAB 20 MEQ PO SCH (08:38)
[2017-04-30] MEDS: BENICAR TAB 40 MG PO SCH (08:38)
[2017-04-30] MEDS: HYDROCHLOROTHIAZIDE 12.5 MG CAP PO SCH (08:38)
[2017-04-30] MEDS: AMARYL TAB 4 MG PO SCH (08:38)
[2017-04-30] MEDS: SYNTHROID 100 mcg TAB PO SCH (08:38)
[2017-04-30] MEDS: NORVASC TAB 5 MG PO SCH (08:38)
[2017-04-30] MEDS: FLONASE NASAL SPRAY ENOSTRIL SCH (08:39)
[2017-04-30] MEDS: ZANTAC PO SCH (08:40)
[2017-04-30 09:55] VITALS: BP 118/56
--- NOTE | 2017-04-30 12:26 | RAD ---
HISTORY: Pneumonia, shortness of breath Study: Chest AP portable Comparison: 04/29/2017 Findings: The heart remains enlarged. No congestive heart failure is noted. No definite acute alveolar infiltra daniel are identified. No pleural effusions are noted. The bony thorax is unremarkable. IMPRESSION: Cardiomegaly without congestive heart failure Lungs clear Reported By:
--- NOTE | 2017-05-02 12:40 | PCM.PROG ---
Progress Note - Progress Note for Day of Date: 04/29/17 - Subjective Subjective: WAS ADMITTED FOR BRONCHOPNEUMONIA AND INFLUENZA. TODAY, HE IS ALERT AND ORIENTED, LYING IN BED ON MORNING ROUNDS. TODAY, SHE CONTINUES WITH COMPLAINTS OF SHORNTESS OF BREATH AND PRODUCTIVE COUGH. ON EXAMINATION, HEART IS REGULAR IN RATE AND RHYTHM. BIALTERAL LUNGS CONTINUE WITH EXPIRATORY WHEEZING AND RHONCHI THROUGHOUT. SHE IS CURRENTLY UTILIZING OXYGEN AT 2L/MIN. ABDOMEN IS ROUND, SOFT, AND NON-TENDER WITH NORMAL BOWEL SOUNDS NOTED IN ALL QUADRANTS. THERE IS NORMAL RANGE OF MOTION NOTED TO ALL EXTREMITIES. HER VITALS THIS MORNING ARE 98.9-67-20-98%-121/58. SHE WAS AFEBRILE THROUGHOUT THE NIGHT. LABS WERE OBTAINED. SHE IS HEMODYNAMICALLY STABLE TODAY. BLOOD AND SPUTUM CULTURES ARE PENDING. CHEST XRAY WAS OBTAINED TODAY AND REPORTS MODERATE CARDIOMEGALY WITHOUT CONGESTIVE HEART FAILURE. NO DEFININTE ACUTE ALVEOLAR INFILTRATES. SHE CONTINUES ON IV ANTIBIOTICS AND RESPIRATORY TREATMENTS. WE WILL CONTINUE WITH CURRENT PLAN OF CARE TODAY. WE PLAN TO FOLLOW UP WITH AM LABS AND CONTINUE TO MONITOR PATIENT. - Past Medical Family Social History Past Med/Fam/Surg Hx: No changes since H&P Allergies: Allergies azithromycin [From Zithromax Z-Kevin] Allergy (Verified 04/26/17 12:22) clarithromycin [From Biaxin] Allergy (Verified 04/26/17 12:22) fluconazole [From Diflucan] Allergy (Verified 04/26/17 12:22) NSAIDS (Non-Steroidal Anti-Inflamma Allergy (Verified 04/26/17 12:22) - Review of Systems ROS: No change since H&P - Vital Signs and I&O's Vital Signs: Temperature 98.6 F Pulse Rate [Left Radial] 66 Pulse Rate 69 Respiratory Rate 18 Blood Pressure [Left Arm] 118/56 O2 Sat by Pulse Oximetry 95 Intake and Output: Intake & Output 04/30/17 05/01/17 05/02/17 05/03/17 11:59 11:59 11:59 11:59 Intake Total 2841 Output Total 2500 Balance 341 - Physical Exam Oriented: Normal Eyes: Normal. negative: Blurred Vision, Diplopia, Discharge, Pain, Redness, Photophobia, Other Ear: Normal. negative: Right, Left, Swelling, Ecchymosis, Hemotypanum, Abrasion , Laceration Nose: Normal Throat: Normal Respiratory: Right, Left, Generalized, Wheezes, Rhonchi Cardiovascular: Normal : Normal. negative: Dysuria, Hematuria, Frequency, Discharge, Testicular Pain , Bleeding, , Other Auscultation: Bowel Sounds: Normal. negative: Bruit, Absent, Increased, Decreased, High Pitched, Other Palpation: Normal Tenderness: Normal. negative: Rebound, Guarding, Rigidity Skin: Normal Musculoskeletal: Normal Psychiatric: Normal Mood Description: Calm Affect: Normal Speech Pattern: Clear, Appropriate - Laboratory and Diagnostics Result Diagrams: 04/30/17 05:14 04/30/17 05:14 Labs: 04/29/17 20:13 Stool Stool Culture - Final 04/29/17 20:13 Stool - Final 04/26/17 14:45 Blood Blood Culture - Final 04/26/17 14:40 Blood Blood Culture - Final 04/26/17 16:31 Sputum - Expectorated Sputum Sputum Culture - Final Streptococcus Pneumoniae 04/26/17 16:31 Sputum - Expectorated Sputum - Final Laboratory WBC 3.9 X10^3/uL (3.6-10.0) 04/30/17 05:14 RBC 4.01 X10^6/uL (3.5-5.4) 04/30/17 05:14 Hgb 13.4 g/dL (12.0-16.0) 04/30/17 05:14 Hct 37.4 % (36.0-47.0) 04/30/17 05:14 MCV 93.2 fL (80.0-100.0) 04/30/17 05:14 MCH 33.3 pg (27.0-34.0) 04/30/17 05:14 MCHC 35.7 g/dL (33.0-35.0) H 04/30/17 05:14 RDW 13.9 % (11.6-16.5) 04/30/17 05:14 Plt Count 69 X10^3/uL (150.0-450.0) L 04/30/17 05:14 Plt Count Comment Decreased (ADEQUATE) A 04/26/17 14:40 MPV 8.7 fL (7.4-11.0) 04/30/17 05:14 Neut % 62.8 % (42.0-75.0) 04/30/17 05:14 Lymph % 25.1 % (21.0-51.0) 04/30/17 05:14 [place] % 8.4 % (0.0-13.0) 04/30/17 05:14 Eos % 3.3 % (0.9-2.9) H 04/30/17 05:14 Baso % 0.4 % (0.2-1.0) 04/30/17 05:14 Neut # 2.5 x10^3/uL (2.2-4.8) 04/30/17 05:14 Lymph # 1.0 X10^3/uL (1.3-2.9) L 04/30/17 05:14 [place] # 0.3 x10^3/uL (0.3-0.8) 04/30/17 05:14 Eos # 0.1 x10^3/uL (0.0-0.2) 04/30/17 05:14 Baso # 0.0 X10^3/uL (0.0-0.1) 04/30/17 05:14 Absolute Nucleated RBC 0.0 /100WBC 04/30/17 05:14 Total Counted 100 04/26/17 14:40 Neutrophils % (Manual) 65 % (39-76) 04/26/17 14:40 Band Neutrophils % 8 % (0-10) 04/26/17 14:40 Lymphocytes % (Manual) 8 % (13-43) L 04/26/17 14:40 Monocytes % (Manual) 15 % (4-9) H 04/26/17 14:40 Eosinophils % (Manual) 3 % (0-6) 04/26/17 14:40 Atypical Lymphocytes 1 04/26/17 14:40 Plt Morphology Comment Abnormal (NORMAL) A 04/26/17 14:40 RBC Morphology Normal (NORMAL) 04/26/17 14:40 Sodium 139 mmol/L (136-145) 04/30/17 05:14 Corrected Sodium 142 mmol/L (136-145) 04/30/17 05:14 Potassium 3.6 mmol/L (3.5-5.1) 04/30/17 05:14 Chloride 104 mmol/L (98-107) 04/30/17 05:14 Carbon Dioxide 27.8 mmol/L (21-32) 04/30/17 05:14 BUN 19 mg/dL (7-18) H 04/30/17 05:14 Creatinine 0.97 mg/dL (0.55-1.02) 04/30/17 05:14 Est GFR (MDRD) Af Amer > 60 (>60) 04/30/17 05:14 Est GFR (MDRD) Non-Af > 60 (>60) 04/30/17 05:14 Glucose 210 mg/dL (65-99) H 04/30/17 05:14 POC Glucose (mg/dL) 182 mg/dL (65-99) H 04/30/17 06:11 Calcium 8.9 mg/dL (8.5-10.1) 04/30/17 05:14 Corrected Calcium 9.9 mg/dL (8.5-10.1) 04/30/17 05:14 Magnesium 1.5 mg/dL (1.7-2.9) L 04/30/17 05:14 Total Bilirubin 1.70 mg/dL (0.2-1.0) H 04/30/17 05:14 AST 59 Units/L (15-37) H 04/30/17 05:14 ALT 29 Units/L (12-78) 04/30/17 05:14 Alkaline Phosphatase 159 Units/L (46-116) H 04/30/17 05:14 Total Protein 6.0 g/dL (6.4-8.2) L 04/30/17 05:14 Albumin 2.7 g/dL (3.4-5.0) L 04/30/17 05:14 Globulin 3.3 g/dL (2.5-4.5) 04/30/17 05:14 Albumin/Globulin Ratio 0.8 Ratio (1.1-2.1) L 04/30/17 05:14 Stool Description 5g,brown,soft 04/29/17 20:13 Stl Occult Blood (IFOB) Negative (NEGATIVE) 04/29/17 20:13 Stool for White Cells Negative (NEGATIVE) 04/29/17 20:13 Stl C. diff Tox B Gene Negative (NEGATIVE) 04/29/17 20:13 Stl C. diff [id number] Negative (NEGATIVE) 04/29/17 20:13 Cryptosporid parvum Ag Negative (NEGATIVE) 04/29/17 20:13 E. histolytica Antigen Negative (NEGATIVE) 04/29/17 20:13 Giardia lamblia Ag Negative (NEGATIVE) 04/29/17 20:13 Influenza Type A (PCR) Positive (NEGATIVE) A 04/26/17 15:12 Influenza Type B (PCR) Negative (NEGATIVE) 04/26/17 15:12 - Plan (1) Bronchopneumonia Status: Acute Plan: PNEUMONIA PROTOCOL, LEVAQUIN 750MG IV DAILY, RESPIRATORY TX, SUPPLEMENTAL OXYGEN, CONTINUE TO MONITOR (2) Influenza A Status: Acute Plan: TAMIFLU 75MG PO BID, DROPLET PRECAUTIONS, CONTINUE TO MONITOR (3) Hypertension Status: Chronic Qualifiers: Hypertension type: essential hypertension Qualified Code(s): I10 - Essential (primary) hypertension Plan: CONTINUE NORVASC, CONTINUE HCTZ, CONTINUE BENICAR, CONTINUE TO MONITOR (4) Depression Status: Chronic Qualifiers: Depression Type: major depressive disorder Major depression recurrence: recurrent Active/Remission status: remission status unspecified Qualified Code(s): F33.9 - Major depressive disorder, recurrent, unspecified Plan: CONTINUE CELEXA, CONTINUE TO MONITOR (5) Maxillary sinusitis, chronic Status: Chronic Plan: CONTINUE FLONASE, CONTINUE TO MONITOR (6) Diabetes Status: Chronic Qualifiers: Diabetes mellitus type: type 2 Diabetes mellitus complication status: with unspecified complications Diabetes mellitus vermin exterminator insulin use: with care home use Qualified Code(s): E11.8 - Type 2 diabetes mellitus with unspecified complications; Z79.4 - half-way (current) use of insulin; Z79.4 - termite helper ( current) use of insulin; Z79.4 - half-way (current) use of insulin; Z79.4 - half-way (current) use of insulin Plan: CONTINUE AMARYL, CONTINUE HUMULIN R SLIDING SCALE, CONTINUE GLUCOPHAGE, MONITOR OTBS (7) GERD (gastroesophageal reflux disease) Status: Chronic Qualifiers: Esophagitis presence: esophagitis presence not specified Qualified Code(s) : K21.9 - Gastro-esophageal reflux disease without esophagitis Plan: CONTINUE ZANTAC, CONTINUE TO MONITOR
== END 2017-04-30 13:12 | disposition home or self-care (01) | DRG 194 ==
LOC: OBS 12:04 → OBSVTOIN 04-28 09:00
PROVIDERS: ADMIT Internal Medicine; ATTEND Internal Medicine
DX: J13 Pneumonia due to Streptococcus pneumoniae (principal); J11.1 Influenza due to unidentified influenza virus with other respiratory manifestations; E11.65 Type 2 diabetes mellitus with hyperglycemia; E86.0 Dehydration; R06.02 Shortness of breath; I51.7 Cardiomegaly; I10 Essential (primary) hypertension; F33.8 Other recurrent depressive disorders; Z79.4 Long term (current) use of insulin; K21.9 Gastro-esophageal reflux disease without esophagitis; J32.0 Chronic maxillary sinusitis; R26.89 Other abnormalities of gait and mobility
CPT/HCPCS: 36415; 71045; 71046; 80053; 82270; 83630; 83735; 85025; 87040; 87045; 87070; 87077; 87186; 87205; 87328; 87329; 87336; 87427; 87493; 87502; 87899; 94640; 94660; 94760; 97535; A4222; A4618; A7030; G8978; G8979; G8987; G8988; G9035; 90670; G0378; J1815; J1940; J1956; J7620